=== PATIENT | male | born 1955 | race Caucasian/White ===

== ENCOUNTER → 2021-08-06 | Outpatient (CLI) | payer MEDICARE ==
[~2021-08-06] MED LIST: ASPI-630 PO; IOHEXOL 180 MG/ML 10 ML VIAL. ONE; OXYC1TAB22 PO; POLY17PO29 PO; PRAV40TA2 PO; SERT100T PO; methylPREDNISolone ACETATE 40 MG/ML VIAL. ONE; methylPREDNISolone ACETATE 80 MG/ML VIAL. ONE
--- NOTE | 2021-08-06 17:15 | PDOC4 ---
Procedure Note: ICD 10 Code: ICD 10 Code: M54.16 M51.36 M 40.06 M 96.1 Procedure Note: Patient was consented for lumbar epidural steroid injection with fluoroscopic guidance. Risks were discussed including but not limited to: Bleeding, infection, possibility of epidural hematoma and subsequent neurological compromise, dural puncture, headaches, spinal cord and/or nerve damage, side effects of steroid medication, and poor results regarding pain control. Patient understands and wished to proceed. Procedure is lumbar epidural steroid injection under local anesthetic using sterile prep and drape at the L4-5 level using C-arm fluoroscopic guidance in both AP and lateral views medications injected is 120 mg Depo-Medrol +10mL preservative-free normal saline and 2 mL contrast- condition at discharge is stable patient tolerated procedure well had no complications. CORINE MEYERS MD Aug 06, 2021 17:15
--- NOTE | 2021-08-06 17:15 | PDOC1 ---
INITIAL PAIN CONSULT DATE OF SERVICE: DOS: DATE: 08/06/21 TIME: 17:09 CHIEF COMPLAINT: Chief Complaint: Low back left lower extremity pain HISTORY OF PRESENT ILLNESS: 65-year-old male presents history of pain low back left posterior hip and lower extremity for several years recently had decompressive surgery L2-L5 with pain essentially unchanged. Patient reports still some pain in the low back left hip and the left lower extremity mostly in the lateral aspect of the thigh but sometimes numbness and tingling in the lateral thigh and anterior thigh as well with numbness on the left side patient reports it is worse with walking standing changing positions he is still very functional but has significant pain after any type of exercise or walking. Patient reports the pain is sharp and stabbing shooting radiating intermittent intensity and essentially unchanged since prior to the surgery. Patient reports wakes him from sleep at night least once a night does not affect his bowel bladder control does affect his go to walk otherwise not use any assistive devices to ambulate. Patient had trigger point injections at a outside facility in June of this year which were temporary but not long-lasting but were helpful patient reports Percocet 10 is helpful he is to take that about once or twice a day on average. Patient rates his disability rating 0-10 10 being worst is an 8 with an responsibilities recreation occupation 5 with social activity 0 self-care in 3-5 support activities. Patient did have MRI scan of the lumbar spine July 12, 2021 showing L4-5 very small fluid collection in the epidural space causing mild encroachment on the spinal canal at this level with broad-based disc bulging at this level also compromising the central canal though been a significant improvement since the prior preoperative examination enhancement extending in the right epidural space at the L4-5 neuroforamen likely on the basis of loc alized discectomy and foraminotomy persistent right-sided foraminal encroachment secondary to facet arthropathy as well. Patient reports no loss of motor function but significant fatigability of the left leg with extended activity or standing. PAST MEDICAL HISTORY: PMH: Arthritis, hypertension, depression, hyperlipidemia PREVIOUS SURGERIES: Past Surgical Hx: Root canal, lumbar laminectomy CURRENT MEDICATIONS: Current Meds: Active Scripts Medications Dose Route/Sig Max Daily Dose Days Date Category Dose Instructions Miralax (Polyethylene Glycol 3350) 17 Gm Powd.pack 1 Packet PO DAILY 2 08/06/21 Reported dissolve in water Zoloft (Sertraline Hcl) 100 Mg Tablet 1 Tab PO DAILY 08/06/21 Reported Aspirin 81 Mg Tab.chew 1 Tab PO DAILY 08/06/21 Reported Pravastatin Sodium 40 Mg Tablet 1 Tab PO DAILY 08/06/21 Reported Percocet 10-325 Mg Tablet (Oxycodone/Acetaminophen) 1 Each Tablet 1 Tab PO PRN BID PRN MDD 2 Tablet(s) 5 08/06/21 Reported ALLERGIES; Allergies: Coded Allergies: No Known Drug Allergies (Unverified , 08/06/21) FAMILY HISTORY: Family Hx: Diabetes SOCIAL HISTORY: Social Hx: Patient drinks alcohol about 2 beers a day does not smoke cigarettes but does smoke cigars occasionally does not use any illegal illicit or recreational drugs is with his spouse lives locally in [facility]. REVIEW OF SYSTEMS: ROS: Positive for those items mentioned in history of present illness, all systems are reviewed, otherwise negative ,and are complete full and well-documented on patient's chart. PHYSICAL EXAM: VS: Blood pressure is 145/85 pulse 64 respirations 20 temperature 98.8 F height is 5 foot 11 inches weight 188 pounds PE: PHYSICAL EXAMINATION: GENERAL: The patient is awake, alert, oriented, appropriate, very pleasant in demeanor HEENT: Shows normocephalic, atraumatic. Extraocular movements are intact and symmetrical. Oral cavity: Mucous membranes moist and pink. Dentition is intact. NECK: Shows anterior throat supple without palpable lymphadenopathy noted. Swallow reflex symmetrical. CHEST: Shows normal on inspection. Breath sounds are clear bilaterally, no rales rhonchi or wheezes auscultated. HEART: Shows S1, S2 clear. No murmurs auscultated. ABDOMEN: Soft, nontender, nondistended. No palpable organomegaly is noted. BACK: Shows spine grossly in the midline. Normal-appearing cervical lordotic curvature. There is slightly increased thoracic kyphosis, some minor flattening of the lumbar lordotic curvature with well-healed midline surgical scar noted. Lumbar paraspinous muscles show symmetrical on inspection, on palpation shows some moderate tenderness diffusely throughout the upper, middle and lower distribution of the paraspinous muscles bilaterally and also into the lower thoracic paraspinous musculature, firm and tender, but without specific trigger points, without radiation of pain. The patient has good rotational motion of the lumbar spine, both laterally as well as extension and flexion without significant difficulty. No tenderness over the spinous processes, sacrum or sacroiliac regions. EXTREMITIES: Lower extremities show deep tendon reflexes 1 in the patellar and tendo calcaneus tendons. Motor exam is 5 on a scale of 5 with right do rsiflexion, extension, quadriceps and hamstring flexion and 5/5 on the left. Peripheral pulses are 1 posterior tibial. No peripheral edema is noted bilaterally. Lower extremities are warm and dry to touch, equal in color and appearance. Straight leg raise noted to be negative bilaterally. Gaenslen's and Bebeto's maneuvers are negative bilaterally as well. The patient is able to stand, stand on his toes no significant difficulty or loss of balance, walks with a normal-appearing gait for short distance the office today does not appear to favor the right or left lower extremity significantly is not use any assistive devices to ambulate. SKIN: Shows warm and dry, good turgor. No edema. No sores, rashes or bruising throughout. IMPRESSION: Impression: 65-year-old male with long history low back left hip and leg pain status post lumbar laminectomy approximately 3 months ago without resolution of symptoms. MRI scan lumbar spine as noted Arthritis Hypertension Plan: Options were discussed with the patient patient spouse will come in him his visit today. We discussed a physical therapy as well as interventional techniques and medication management. Patient like to pursue techniques. We discussed a lumbar epidural steroid injections description as well as anatomical models to describe the procedure. Risks were discussed including but not limited to: Bleeding, infection, possibility of epidural hematoma and subsequent neurological compromise, dural puncture, headaches, spinal cord and/or nerve damage, side effects of steroid medication, and poor results regarding pain control. Patient understands and wished to proceed. Patient will return to the clinic in approximately 2 weeks for follow-up, was counseled as return appointment, typical, and side effect to be aware of. Procedure is lumbar epidural steroid injection under local anesthetic using sterile prep and drape at the L4-5 level using C-arm fluoroscopic guidance in both AP and lateral views medications injected is 120 mg Depo-Medrol +10mL preservative-free normal saline and 2 mL contrast- condition at discharge is stable patient tolerated procedure well had no complications. CORINE MEYERS MD Aug 06, 2021 17:15
== END | disposition home or self-care (01) ==
LOC: PNCL 13:41
PROVIDERS: ATTEND Anesthesiology
DX: M51.16 Intervertebral disc disorders with radiculopathy, lumbar region (principal); M96.1 Postlaminectomy syndrome, not elsewhere classified; M79.605 Pain in left leg; M19.90 Unspecified osteoarthritis, unspecified site; I10 Essential (primary) hypertension; F32.9 Major depressive disorder, single episode, unspecified; E78.5 Hyperlipidemia, unspecified; Z79.82 Long term (current) use of aspirin; Z79.899 Other long term (current) drug therapy; Z98.890 Other specified postprocedural states
CPT/HCPCS: 62323; J1030; J1040; Q9965